=== PATIENT | male | born 1935 | race Caucasian/White ===

== ENCOUNTER 2020-03-31 08:06 | Day surgery (SDC) | payer MEDICARE, BC ==
[2020-03-28 11:48] VITALS: BMI 24.5
[2020-03-31] MEDS ORDERED: Sodium Bicarbonate 2.5 MEQ/5 ML VIAL ONE (09:00)
[2020-03-31 09:19] VITALS: BP 139/55; TEMP 97.5
--- NOTE | 2020-03-31 10:48 | CT ---
Bone marrow aspiration/biopsy CT-guided HISTORY: Pancytopenia. FINDINGS: After explaining the procedure and answering all questions, limited CT imaging of the pelvi s was performed with patient prone. Sterile technique, buffered local anesthesia, CT guidance, and a posterior approach were used to care fully engage an 11-gauge bone biopsy needle into the posterior cortex of the left iliac body. Position was confirmed with CT. Approximately 9 cc of blood was carefully aspirated and submitted to pathology for evaluation. 11-gauge core biopsy specimen was then obtained and submitted to pathology. Patient tolerated the procedure well and was returned to the holding area in good conditio n for further monitoring. IMPRESSION : Technically successful CT-guided bone marrow aspiration/biopsy.
--- NOTE | 2020-04-02 15:48 | CT ---
"PRELIMINARY REPORT" Bone marrow aspiration/biopsy CT-guided HISTORY: Pancytopenia. FINDINGS: After explaining the procedure and answering all questions, limited CT imaging of the pelvi s was performed with patient prone. Sterile technique, buffered local anesthesia, CT guidance, and a posterior approach were used to care fully engage an 11-gauge bone biopsy needle into the posterior cortex of the left iliac body. Position was confirmed with CT. Approximately 9 cc of blood was carefully aspirated and submitted to pathology for evaluation. 11-gauge core biopsy specimen was then obtained and submitted to pathology. Patient tolerated the procedure well and was returned to the holding area in good conditio n for further monitoring. IMPRESSION : Technically successful CT-guided bone marrow aspiration/biopsy. Transcribed Date/Time: 04/02/2020 3:48 PM
== END 2020-03-31 11:25 | disposition home or self-care (01) ==
LOC: CT 08:06
PROVIDERS: ATTEND Internal Medicine Hematology & Oncology
PROC: 07DR3ZX Extraction of Iliac Bone Marrow, Percutaneous Approach, Diagnostic (ICD-10-PCS; principal; 2020-03-31)
DX: D61.818 Other pancytopenia (principal); K21.9 Gastro-esophageal reflux disease without esophagitis; I25.10 Atherosclerotic heart disease of native coronary artery without angina pectoris; Z85.46 Personal history of malignant neoplasm of prostate; Z85.810 Personal history of malignant neoplasm of tongue; Z87.891 Personal history of nicotine dependence; Z79.899 Other long term (current) drug therapy; Z88.6 Allergy status to analgesic agent; Z88.8 Allergy status to other drugs, medicaments and biological substances
CPT/HCPCS: 20225; 77012; 85097; 88184; 88237; 88264; 88280; 88305; 88311; 88313

== ENCOUNTER 2020-05-15 14:58 | Emergency (ER) | payer MEDICARE, BC ==
[2020-05-15 17:39] LABS: Hemoglobin 5.1 g/dL (14.0-18.0); Mean Corpuscular HGB CONC 34.9 g/dL (32.0-36.0); Mean Corpuscular Hemoglobin 41.2 pg (27.0-31.0); Mean Platelet Volume 9.6 fL (7.4-10.4); Platelet Count 7 thou/uL (130-400); RBC Distribution Width 16.9 % (11.5-14.5); Red Blood Cell (RBC) Count 1.25 mill/uL (4.70-6.10); White Blood Cell (WBC) Count 1.3 thou/uL (4.8-10.8)
[2020-05-15 17:53] LABS: Band 2 % (5-11); Eosinophils 1 % (0-10); Lymphocytes 74 % (21-51); MDiff Complete? YES; Macrocytosis SLIGHT = 6-15 cells (100X) (0-5/hpf); Monocytes 4 % (0-10); Neutrophil 19 % (42-75); Platelet Morphology Comment Appears Decreased; Polychromasia SLIGHT = 2-3 cells (100X) (0-2/hpf); Reflex for Review?? YES; Tear Drops SLIGHT = 2-5 cells (100X) (0-1/hpf)
[2020-05-15 17:54] LABS: ALT (SGPT) 8 U/L (8-55); AST (SGOT) 16 U/L (5-34); Albumin 3.8 g/dL (3.4-4.8); Alkaline Phosphatase 97 U/L (40-110); Anion Gap 13 mmol/L (10-20); BUN (Urea Nitrogen) 33 mg/dL (8.4-25.7); Bilirubin, Total 0.4 mg/dL (0.2-1.2); Calc. Creatinine Clearance 0 mL/min (70-130); Calcium 8.9 mg/dL (7.8-10.44); Carbon Dioxide 23 mmol/L (23-31); Chloride 109 mmol/L (98-107); Estimated GFR-MDRD 77; Globulin 3.1 g/dL (2.4-3.5); Glucose 122 mg/dL (83-110); Potassium 4.5 mmol/L (3.5-5.1); Protein, Total 6.9 g/dL (5.8-8.1); Sodium 140 mmol/L (136-145)
== END 2020-05-15 22:58 | disposition home or self-care (01) ==
LOC: ERS 14:58
DX: D64.9 Anemia, unspecified (principal); D69.6 Thrombocytopenia, unspecified; K21.9 Gastro-esophageal reflux disease without esophagitis; K58.9 Irritable bowel syndrome, unspecified; Z87.891 Personal history of nicotine dependence; Z79.899 Other long term (current) drug therapy
CPT/HCPCS: 36430; 80053; 85025; 86850; 86900; 86901; 86920; 99284; P9016; 36415; 85060

== ENCOUNTER 2020-06-03 15:23 | Emergency (ER) | payer MEDICARE, BC ==
[2020-06-03 17:01] LABS: Hemoglobin 5.9 g/dL (14.0-18.0); Mean Corpuscular HGB CONC 35.6 g/dL (32.0-36.0); Mean Corpuscular Hemoglobin 38.6 pg (27.0-31.0); Mean Platelet Volume 11.4 fL (7.4-10.4); Platelet Count 4 thou/uL (130-400); RBC Distribution Width 18.9 % (11.5-14.5); Red Blood Cell (RBC) Count 1.52 mill/uL (4.70-6.10); White Blood Cell (WBC) Count 1.3 thou/uL (4.8-10.8)
[2020-06-03 17:18] LABS: Anisocytosis SLIGHT = 6-15 cells (100X) (0-5/hpf); Band 2 % (5-11); Lymphocytes 80 % (21-51); MDiff Complete? YES; Macrocytosis SLIGHT = 6-15 cells (100X) (0-5/hpf); Monocytes 4 % (0-10); Neutrophil 14 % (42-75); Platelet Morphology Comment Appears Decreased; Polychromasia SLIGHT = 2-3 cells (100X) (0-2/hpf); Spherocytes SLIGHT = 1-5 cells (100X) (None Seen)
[2020-06-03 17:27] LABS: AST (SGOT) 13 U/L (5-34); Bilirubin, Total 0.3 mg/dL (0.2-1.2); Calcium 8.2 mg/dL (7.8-10.44); Chloride 108 mmol/L (98-107); Potassium 4.4 mmol/L (3.5-5.1); Sodium 140 mmol/L (136-145)
[2020-06-03 17:33] LABS: ALT (SGPT) 12 U/L (8-55); Albumin 3.9 g/dL (3.4-4.8); Alkaline Phosphatase 102 U/L (40-110); Anion Gap 13 mmol/L (10-20); BUN (Urea Nitrogen) 32 mg/dL (8.4-25.7); CK (CPK) 45 U/L (30-200); Calc. Creatinine Clearance 0 mL/min (70-130); Carbon Dioxide 22 mmol/L (23-31); Estimated GFR-MDRD 69; Globulin 2.7 g/dL (2.4-3.5); Glucose 142 mg/dL (83-110); Lipase 20 U/L (8-78); Protein, Total 6.6 g/dL (5.8-8.1)
== END 2020-06-03 23:25 | disposition home or self-care (01) ==
LOC: ERS 15:23
DX: D64.9 Anemia, unspecified (principal); D69.6 Thrombocytopenia, unspecified; K21.9 Gastro-esophageal reflux disease without esophagitis; Z87.891 Personal history of nicotine dependence; Z79.899 Other long term (current) drug therapy
CPT/HCPCS: 36430; 80053; 82550; 83690; 84484; 85025; 86850; 86900; 86901; 86920; 93005; 94760; 99285; P9016; P9035; 36415

== ENCOUNTER 2020-06-18 15:58 | Day surgery (SDC) | payer MEDICARE, BC ==
[2020-06-18] MEDS ORDERED: Acetaminophen 500 MG TAB PO SCH (16:30)
[2020-06-18] MEDS ORDERED: diphenhydrAMINE 25 MG CAP PO SCH (16:30)
[2020-06-19 04:25] VITALS: BP 130/59; TEMP 98.3
[2020-06-19 04:59] LABS: Eosinophils 4 % (0-10); Lymphocytes 88 % (21-51); MDiff Complete? YES; Mean Corpuscular HGB CONC 36.2 g/dL (32.0-36.0); Mean Corpuscular Hemoglobin 35.6 pg (27.0-31.0); Mean Corpuscular Volume 98.1 fL (78.0-98.0); Mean Platelet Volume 7.3 fL (7.4-10.4); Neutrophil 8 % (42-75); Platelet Count 64 thou/uL (130-400); Platelet Morphology Comment Appears Decreased; RBC Distribution Width 17.5 % (11.5-14.5); Red Blood Cell (RBC) Count 1.69 mill/uL (4.70-6.10); White Blood Cell (WBC) Count 1.3 thou/uL (4.8-10.8)
== END 2020-06-19 05:22 | disposition home or self-care (01) ==
LOC: EDBD → ONC/OP 15:58 → ONC 16:17 → ONC/OP 06-19 05:22
PROVIDERS: ATTEND Internal Medicine Hematology & Oncology
PROC: 30233N1 Transfusion of Nonautologous Red Blood Cells into Peripheral Vein, Percutaneous Approach (ICD-10-PCS; principal; 2020-06-18)
PROC: 30233R1 Transfusion of Nonautologous Platelets into Peripheral Vein, Percutaneous Approach (ICD-10-PCS; 2020-06-18)
DX: D64.9 Anemia, unspecified (principal); D69.6 Thrombocytopenia, unspecified; Z88.6 Allergy status to analgesic agent; Z88.8 Allergy status to other drugs, medicaments and biological substances
CPT/HCPCS: 36415; 36430; 85025; 86850; 86900; 86901; P9016; P9035; Q0163